=== PATIENT | female | born 1990 | race Asian ===

== ENCOUNTER 2016-11-05 11:35 | Emergency (ER) | payer OTHER ==
[~2016-11-05] VITALS: Ht 170.2 cm; Wt 85.7 kg
[2016-11-05 12:20] LABS: PLATELET COUNT 244 K/uL (152-353)
[2016-11-05 12:40] LABS: POTASSIUM 3.2 mmol/L (3.6-5.2); SODIUM 137 mmol/L (136-145)
[2016-11-05 15:40] VITALS: BP 133/92
== END 2016-11-05 15:40 | disposition home or self-care (01) ==
LOC: ED 11:35
DX: N83.202 Unspecified ovarian cyst, left side (principal); R10.9 Unspecified abdominal pain
CPT/HCPCS: 36415; 80053; 82150; 83690; 85027; 96374; 99284; J2405; Q9963

== ENCOUNTER 2017-07-28 04:42 | Emergency (ER) | payer OTHER ==
[~2017-07-28] VITALS: Ht 170.2 cm; Wt 81.6 kg
[2017-07-28 07:40] VITALS: BP 130/70; TEMP 98
== END 2017-07-28 07:43 | disposition home or self-care (01) ==
LOC: ED 04:42
DX: F41.8 Other specified anxiety disorders (principal)
CPT/HCPCS: 36415; 80307; 99283

== ENCOUNTER 2017-12-12 09:07 | Emergency (ER) | payer OTHER ==
[~2017-12-12] VITALS: Ht 170.2 cm; Wt 95.3 kg
[2017-12-12 09:10] VITALS: TEMP 98.3
[2017-12-12 10:01] LABS: PLATELET COUNT 264 K/uL (152-353)
[2017-12-12 10:09] LABS: POTASSIUM 3.2 mmol/L (3.6-5.2)
[2017-12-12 10:55] VITALS: BP 132/90
== END 2017-12-12 10:55 | disposition home or self-care (01) ==
LOC: ED 09:07
DX: T78.49XA Other allergy, initial encounter (principal); T78.3XXA Angioneurotic edema, initial encounter
CPT/HCPCS: 80053; 81000; 84550; 85027; 96374; 99284; J2930